=== PATIENT | male | born 1970 | race Caucasian/White ===

== ENCOUNTER 2021-06-07 14:25 | Emergency (ER) | payer OTHER ==
[2021-06-07] MEDS ORDERED: KETOROLAC TROMETHAMINE 30 MG/1 ML VIAL IM ONE (14:43)
[2021-06-07] MEDS ORDERED: KETOROLAC TROMETHAMINE 30 MG/1 ML VIAL ONE (14:45)
[2021-06-07 14:59] VITALS: BP 130/93; PULSE 98; TEMP 98; BMI 34.8
== END 2021-06-07 16:04 | disposition home or self-care (01) ==
LOC: FER 14:25
PROC: 3E0233Z Introduction of Anti-inflammatory into Muscle, Percutaneous Approach (ICD-10-PCS; principal; 2021-06-07)
DX: S49.91XA Unspecified injury of right shoulder and upper arm, initial encounter (principal)
CPT/HCPCS: 73030-TC-RT-FY; 73060-TC-RT-FY; 99284-25